=== PATIENT | male | born 1995 | race Caucasian/White ===

== ENCOUNTER 2016-08-23 22:43 | Emergency (ER) | payer SELFPAY ==
[~2016-08-23] VITALS: Ht 177.8 cm; Wt 107.5 kg
[2016-08-23 22:53] VITALS: Ht 177.8 cm; Wt 107.5 kg
[2016-08-24] MEDS ORDERED: LIDOCAINE 1% (MDV) 20 ML INJ SC ONE (02:00)
[2016-08-24] MEDS ORDERED: DIPHTH/TET/ACEL PERTUSS (ADULT) 0.5 ML VIAL IM* ONE (02:00)
[2016-08-24] MEDS ORDERED: CEPH-443 PO (02:35)
[2016-08-24 02:50] VITALS: BP 123/68; PULSE 78; RESP 20; TEMP 98.9
--- NOTE | 2016-08-24 04:35 | ERD ---
ER Documentation Chief Complaint Date/Time DATE: 08/24/16 TIME: 04:33 Chief Complaint laceration right eyelid sustained after a fall while skating HPI This patient is a 21-year-old male with no significant medical history presenting to the emergency department for laceration to the right lateral side of his face after a skating injury which occurred just prior to arrival. The patient was skating and then fell forward onto the right side of his face. The bleeding was controlled on the scene. The patient's tetanus is not up-to-date. There was no loss of consciousness, other head injury, other injuries, or other symptoms reported. The patient is taken no medications for relief of pain symptoms. Pain is very mild currently. ROS All systems reviewed and are negative except as per history of present illness. Medications Home Meds Active Scripts Cephalexin* (Keflex*) 500 Mg Capsule, 500 MG PO BID for 7 Days, #14 CAP Prov:ROSA STROUD PA-C 08/24/16 Allergies Allergies: Coded Allergies: No Known Allergy (Unverified , 08/23/16) PMhx/Soc Medical and Surgical Hx: pt denies Medical Hx, pt denies Surgical Hx Hx Alcohol Use: No Hx Substance Use: No Hx Tobacco Use: No Smoking Status: Never smoker FmHx Noncontributory for chief complaint Physical Exam Vitals Vital Signs Date Time Temp Pulse Resp B/P Pulse Ox O2 Delivery O2 Flow Rate FiO2 08/24/16 02:50 98.9 78 20 123/68 99 08/23/16 22:53 98.9 83 20 134/73 99 Physical Exam Const: The patient is resting comfortably in no acute distress. Head: There is a 2 cm laceration to the right eyebrow area. There is mild active bleeding which is controlled. Eyes: Normal Conjunctiva. EOMs are intact bilaterally. There are no visual acuity deficits. ENT: Normal External Ears, Nose and Mouth. Neck: Full range of motion..~ No meningismus. Resp: Clear to auscultation bilaterally Cardio: Regular rate and rhythm, no murmurs Abd: Soft, non tender, non distended. Normal bowel sounds Skin: No petechiae or rashes Back: No midline or flank tenderness Ext: No cyanosis, or edema Neur: Awake and alert Psych: Normal Mood and Affect Results 24 hrs Current Medications Medications (Trade) Dose Ordered Sig/Dede Route PRN Reason Start Time Stop Time Status Last Admin Dose Admin Diphtheria/ Tetanus/Acell Pertussis (Adacel) 0.5 ml ONCE ONCE IM* 08/24/16 02:00 08/24/16 02:01 DC 08/24/16 02:03 Lidocaine (Xylocaine 1% (Mdv) 20 ml) 20 ml ONCE ONCE SC 08/24/16 02:00 08/24/16 02:01 DC Procedures/MDM 21-year-old male presents secondary to complaints of laceration. Laceration Repair by me: Anesthesia: 1% lidocaine locally Location: Just lateral and superior to the right eye. Tendon/Joint/Nerves: No injury Foreign body: None detected after copious irrigation and exploration Technique: Simple Interrupted Sutures Complexity: No subcutaneous sutures/mucosal repair/ edge excision Post Closure Length: To cm Patient's bleeding was easily controlled in the department and there is no indication of anemia. No evidence of compartment syndrome, neurologic injury, vascular injury, open joint, tendon laceration, or foreign body. Patient is appropriate for outpatient follow up. 48 hour wound check. Scar minimization instructions given. Departure Diagnosis: Primary Impression: Laceration Condition: Fair Patient Instructions: Laceration, Face (Suture Or Tape) Referrals: [facility] YOU HAVE RECEIVED A MEDICAL SCREENING EXAM AND THE RESULTS INDICATE THAT YOU DO NOT HAVE A CONDITION THAT REQUIRES URGENT TREATMENT IN THE EMERGENCY DEPARTMENT. FURTHER EVALUATION AND TREATMENT OF YOUR CONDITION CAN WAIT UNTIL YOU ARE SEEN IN YOUR DOCTORS OFFICE WITHIN THE NEXT 1-2 DAYS. IT IS YOUR RESPONSIBILITY TO MAKE AN APPOINTMENT FOR FOLOW-UP CARE. IF YOU HAVE A PRIMARY DOCTOR --you should call your primary doctor and schedule an appointment IF YOU DO NOT HAVE A PRIMARY DOCTOR YOU CAN CALL OUR PHYSICIAN REFERRAL HOTLINE AT IF YOU CAN NOT AFFORD TO SEE A PHYSICIAN YOU CAN CHOSE FROM THE FOLLOWING [facility] [id number] [facility] [address] [facility] [address] [facility] [address] [facility] [address] [place] [address] [address] Additional Instructions: Please return in 48 hours for wound recheck. Please return in 7-10 days for suture removal. Follow-up with your primary care physician within 1 week. Return to the emergency department immediately should you have any new or worsening symptoms, uncontrolled fevers, or other unexplained symptoms. Take all medications as directed. ORSA STROUD PA-C Aug 24, 2016 04:35
== END 2016-08-24 03:07 | disposition home or self-care (01) ==
LOC: FTE 22:43
DX: S01.111A Laceration without foreign body of right eyelid and periocular area, initial encounter (principal); V00.111A Fall from in-line roller-skates, initial encounter; Y92.9 Unspecified place or not applicable; Z23 Encounter for immunization
CPT/HCPCS: 90471; 90715